=== PATIENT | male | born 1945 | race Caucasian/White ===

== ENCOUNTER 2021-04-17 13:55 | Inpatient (IN) ==
[2021-04-17] MEDS ORDERED: Isovue-370 500 ML BOTTLE IVP ONE (15:17)
[2021-04-17] MEDS ORDERED: 0.9 % Sodium Chloride 1,000 ML IVC ONE (15:17)
[2021-04-17 16:08] LABS: Basophils % 0.5 %; Eosinophils % 0.5 %; Hematocrit 33.7 % (37.5-50.1); Hemoglobin 11.1 g/dL (12.9-16.9); Immature Granulocytes % 0.8 % (0-4); Lymphocytes # 0.8 K/mcL (0.6-4.6); Lymphocytes % 10.6 %; Mean Corpuscular HGB Conc 32.9 g/dL (31.6-35.5); Mean Corpuscular Hemoglobin 32.1 pg (28.0-33.3); Mean Corpuscular Volume 97.4 fL (83.0-100.0); Mean Platelet Volume 10.3 fL (9.4-12.4); Monocytes # 0.7 K/mcL (0.0-1.3); Monocytes % 8.9 %; Neutrophils # 6.2 K/mcL (1.6-8.9); Platelet Count 271 K/mcL (140-400); Red Blood Count 3.46 M/mcL (4.19-5.50); Red Cell Distribution Width 16.2 % (11.5-14.5); Segmented Neutrophils % 78.7 %; White Blood Count 7.9 K/mcL (4.3-11.1)
[2021-04-17 16:28] LABS: Alanine Aminotransferase 92 Units/L (7-52); Albumin 2.9 g/dL (3.5-5.7); Albumin/Globulin Ratio 0.7 (1.1-2.2); Aspartate Amino Transferase 264 Units/L (13-39); BUN/Creatinine Ratio 24 (6-26); Bilirubin,Direct 3.8 mg/dL (0.0-0.2); Bilirubin,Indirect 2.1 mg/dL (0.0-1.0); Bilirubin,Total 5.9 mg/dL (0.3-1.0); Blood Urea Nitrogen 31 mg/dL (8-23); Calcium 9.2 mg/dL (8.6-10.3); Carbon Dioxide 20 mEq/L (23-29); Chloride 96 mEq/L (98-107); Glucose 83 mg/dL (70-105); Lipase 77 Units/L (11-82); Magnesium 1.5 mg/dL (1.6-2.6); Osmolality,Calculated 276 (280-300); Potassium 4.7 mEq/L (3.5-5.1); Sodium 130 mEq/L (136-145); Total Protein 6.9 g/dL (6.4-8.9); eGFR For African Americans > 60 (> 60); eGFR For Non-African Americans 56 (> 60)
[2021-04-17 17:13] LABS: Alkaline Phosphatase 1234 Units/L (34-104)
[2021-04-17 17:43] LABS: Bacteria,Urine Few per hpf (None-Few); Bilirubin,Urine Small (Negative); Blood,Urine Negative (Negative); Clarity,Urine Clear (Clear); Color,Urine Yellow (Yellow); Glucose,Urine (UA) Normal (Normal); Hyaline Casts,Urine Few per lpf (None Seen); Ketones,Urine Negative (Negative); Leukocyte Esterase,Urine Negative (Negative); Mucus,Urine Few per lpf (None-Few); Nitrite,Urine Negative (Negative); Protein,Urine 30 mg/dL (Neg-Trace); RBC,Urine 0-3 per hpf (0-3); Specific Gravity,Urine 1.018 (1.010-1.025); Urobilinogen,Urine Normal (Normal)
[2021-04-17] MEDS ORDERED: Naloxone 0.4 MG/ML INJ IVP PRN (20:55)
[2021-04-17] MEDS ORDERED: Gadolinium Contrast Agent (WT Based) IV PRN (21:31)
[2021-04-17] MEDS: 0.9 % Sodium Chloride 1,000 ML IVC SCH (23:17)
[2021-04-18] MEDS: Ondansetron ODT 4 MG TAB.RAPDIS SL PRN (06:35)
[2021-04-18] MEDS: *HR* Heparin 5,000 UNIT/ML VIAL SQ SCH ×2 (06:36→16:45)
[2021-04-18 07:23] LABS: Alanine Aminotransferase 91 Units/L (7-52); Albumin 3.1 g/dL (3.5-5.7); Albumin/Globulin Ratio 0.8 (1.1-2.2); Alkaline Phosphatase 1283 Units/L (34-104); Aspartate Amino Transferase 255 Units/L (13-39); BUN/Creatinine Ratio 27 (6-26); Bilirubin,Total 6.1 mg/dL (0.3-1.0); Blood Urea Nitrogen 30 mg/dL (8-23); Calcium 9.3 mg/dL (8.6-10.3); Carbon Dioxide 21 mEq/L (23-29); Chloride 98 mEq/L (98-107); Globulin 3.7 g/dL (2.4-3.5); Glucose 81 mg/dL (70-105); Osmolality,Calculated 277 (280-300); Potassium 4.5 mEq/L (3.5-5.1); Sodium 131 mEq/L (136-145); Total Protein 6.8 g/dL (6.4-8.9); eGFR For African Americans > 60 (> 60); eGFR For Non-African Americans > 60 (> 60)
[2021-04-18] MEDS: Finasteride 5 MG TABLET PO SCH (08:07)
[2021-04-18] MEDS: allopurinoL 300 MG TABLET PO SCH (08:07)
[2021-04-18] MEDS: Aspirin Enteric Coated 81 MG Tablet PO SCH (08:07)
[2021-04-18] MEDS: Fluticasone Propionate Nasal 50 MCG/SPRAY BOTTLE NS SCH (08:08)
[2021-04-18] MEDS ORDERED: Isovue-370 500 ML BOTTLE IVP ONE (09:57)
[2021-04-18 11:19] LABS: Bilirubin,Direct 3.7 mg/dL (0.0-0.2); Bilirubin,Indirect 2.4 mg/dL (0.0-1.0)
[2021-04-18] MEDS: 0.9 % Sodium Chloride 1,000 ML IVC SCH (12:12)
[2021-04-18 12:50] LABS: Hematocrit 32.8 % (37.5-50.1); Hemoglobin 10.5 g/dL (12.9-16.9); Mean Corpuscular Hemoglobin 31.7 pg (28.0-33.3); Mean Corpuscular Volume 99.1 fL (83.0-100.0); Platelet Count 310 K/mcL (140-400); Red Blood Count 3.31 M/mcL (4.19-5.50); Red Cell Distribution Width 15.8 % (11.5-14.5); White Blood Count 8.5 K/mcL (4.3-11.1)
[2021-04-18] MEDS: Temazepam 15 MG CAPSULE PO SCH (21:01)
[2021-04-19 03:07] LABS: Hematocrit 30.9 % (37.5-50.1); Hemoglobin 9.8 g/dL (12.9-16.9); Mean Corpuscular HGB Conc 31.7 g/dL (31.6-35.5); Mean Platelet Volume 9.9 fL (9.4-12.4); Platelet Count 237 K/mcL (140-400); Red Blood Count 3.06 M/mcL (4.19-5.50); Red Cell Distribution Width 15.2 % (11.5-14.5); White Blood Count 5.7 K/mcL (4.3-11.1)
[2021-04-19 03:15] LABS: INR 1.3; Prothrombin Time 15.4 Seconds (9.4-12.1)
[2021-04-19 03:18] LABS: Activated Partial Thrombo Time 31.4 Seconds (26.0-36.0)
[2021-04-19 03:29] LABS: Alanine Aminotransferase 80 Units/L (7-52); Albumin 2.6 g/dL (3.5-5.7); Albumin/Globulin Ratio 0.7 (1.1-2.2); Alkaline Phosphatase 1192 Units/L (34-104); Aspartate Amino Transferase 214 Units/L (13-39); BUN/Creatinine Ratio 25 (6-26); Bilirubin,Direct 2.9 mg/dL (0.0-0.2); Bilirubin,Indirect 1.8 mg/dL (0.0-1.0); Bilirubin,Total 4.7 mg/dL (0.3-1.0); Blood Urea Nitrogen 27 mg/dL (8-23); Calcium 8.6 mg/dL (8.6-10.3); Carbon Dioxide 22 mEq/L (23-29); Chloride 101 mEq/L (98-107); Globulin 3.6 g/dL (2.4-3.5); Glucose 88 mg/dL (70-105); Osmolality,Calculated 281 (280-300); Potassium 4.3 mEq/L (3.5-5.1); Sodium 133 mEq/L (136-145); Total Protein 6.2 g/dL (6.4-8.9); eGFR For African Americans > 60 (> 60); eGFR For Non-African Americans > 60 (> 60)
[2021-04-19 03:49] LABS: Hepatitis B Surface Antigen Nonreactive (Nonreactive)
[2021-04-19 04:17] LABS: Hepatitis C Virus Antibody Nonreactive (Nonreactive)
[2021-04-19 04:18] LABS: Hepatitis A Antibody IgM Nonreactive (Nonreactive); Hepatitis B Core IgM Nonreactive (Nonreactive)
[2021-04-19] MEDS: *HR* Heparin 5,000 UNIT/ML VIAL SQ SCH ×2 (06:26→21:35)
[2021-04-19] MEDS: Cholestyramine 4 GM POWD.PACK PO SCH (06:26)
[2021-04-19] MEDS: Fluticasone Propionate Nasal 50 MCG/SPRAY BOTTLE NS SCH (10:35)
[2021-04-19] MEDS: Finasteride 5 MG TABLET PO SCH (10:40)
[2021-04-19] MEDS: Aspirin Enteric Coated 81 MG Tablet PO SCH (10:40)
[2021-04-19] MEDS: allopurinoL 300 MG TABLET PO SCH (10:40)
[2021-04-19] MEDS: cefTRIAXone 1,000 MG in Water for inj. (sterile) 10 ML IVP SCH (10:48)
[2021-04-19] MEDS: Ondansetron ODT 4 MG TAB.RAPDIS SL PRN (21:35)
[2021-04-19] MEDS: Temazepam 15 MG CAPSULE PO SCH (21:36)
[2021-04-20 01:18] LABS: Basophils # 0.1 K/mcL (0.0-0.2); Basophils % 0.8 %; Eosinophils # 0.1 K/mcL (0.0-0.6); Eosinophils % 0.9 %; Hematocrit 32.8 % (37.5-50.1); Hemoglobin 10.4 g/dL (12.9-16.9); Immature Granulocytes % 0.8 % (0-4); Lymphocytes # 1.1 K/mcL (0.6-4.6); Lymphocytes % 14.8 %; Mean Corpuscular HGB Conc 31.7 g/dL (31.6-35.5); Mean Corpuscular Hemoglobin 32.4 pg (28.0-33.3); Mean Corpuscular Volume 102.2 fL (83.0-100.0); Mean Platelet Volume 10.1 fL (9.4-12.4); Monocytes # 0.6 K/mcL (0.0-1.3); Neutrophils # 5.7 K/mcL (1.6-8.9); Platelet Count 246 K/mcL (140-400); Red Blood Count 3.21 M/mcL (4.19-5.50); Red Cell Distribution Width 14.6 % (11.5-14.5); Segmented Neutrophils % 74.7 %; White Blood Count 7.6 K/mcL (4.3-11.1)
[2021-04-20 01:30] LABS: INR 1.4; Prothrombin Time 15.5 Seconds (9.4-12.1)
[2021-04-20 01:40] LABS: Alanine Aminotransferase 86 Units/L (7-52); Albumin 2.9 g/dL (3.5-5.7); Albumin/Globulin Ratio 0.7 (1.1-2.2); Alkaline Phosphatase 1271 Units/L (34-104); Aspartate Amino Transferase 228 Units/L (13-39); BUN/Creatinine Ratio 22 (6-26); Bilirubin,Total 4.8 mg/dL (0.3-1.0); Blood Urea Nitrogen 22 mg/dL (8-23); Carbon Dioxide 19 mEq/L (23-29); Chloride 97 mEq/L (98-107); Globulin 3.9 g/dL (2.4-3.5); Glucose 88 mg/dL (70-105); Magnesium 1.3 mg/dL (1.6-2.6); Osmolality,Calculated 271 (280-300); Phosphorous 2.4 mg/dL (2.7-4.5); Potassium 4.1 mEq/L (3.5-5.1); Sodium 129 mEq/L (136-145); Total Protein 6.8 g/dL (6.4-8.9); eGFR For African Americans > 60 (> 60); eGFR For Non-African Americans > 60 (> 60)
[2021-04-20] MEDS: *HR* Heparin 5,000 UNIT/ML VIAL SQ SCH ×2 (05:54→17:20)
[2021-04-20] MEDS: Cholestyramine 4 GM POWD.PACK PO SCH (05:54)
[2021-04-20] MEDS: Fluticasone Propionate Nasal 50 MCG/SPRAY BOTTLE NS SCH (08:28)
[2021-04-20] MEDS: Aspirin Enteric Coated 81 MG Tablet PO SCH (08:39)
[2021-04-20] MEDS: allopurinoL 300 MG TABLET PO SCH (08:40)
[2021-04-20] MEDS: Finasteride 5 MG TABLET PO SCH (08:40)
[2021-04-20] MEDS: cefTRIAXone 1,000 MG in Water for inj. (sterile) 10 ML IVP SCH (08:42)
[2021-04-20] MEDS ORDERED: Lidocaine -MPF 2% 5 ML VIAL ONE (11:31)
[2021-04-20] MEDS: Sodium Bicarbonate 75 MEQ in 0.45 % Sodium Chloride 1,000 ML IVC SCH (12:43)
[2021-04-20] MEDS: Temazepam 15 MG CAPSULE PO SCH (21:20)
[2021-04-21 01:53] LABS: BUN/Creatinine Ratio 21 (6-26); Blood Urea Nitrogen 21 mg/dL (8-23); Calcium 8.4 mg/dL (8.6-10.3); Carbon Dioxide 20 mEq/L (23-29); Chloride 97 mEq/L (98-107); Glucose 111 mg/dL (70-105); Magnesium 1.9 mg/dL (1.6-2.6); Osmolality,Calculated 274 (280-300); Phosphorous 2.8 mg/dL (2.7-4.5); Potassium 3.8 mEq/L (3.5-5.1); Sodium 130 mEq/L (136-145); eGFR For African Americans > 60 (> 60); eGFR For Non-African Americans > 60 (> 60)
[2021-04-21] MEDS: Sodium Bicarbonate 75 MEQ in 0.45 % Sodium Chloride 1,000 ML IVC SCH (04:17)
[2021-04-21] MEDS: *HR* Heparin 5,000 UNIT/ML VIAL SQ SCH (06:35)
[2021-04-21] MEDS: Cholestyramine 4 GM POWD.PACK PO SCH (06:35)
[2021-04-21 07:01] LABS: Pancreatic Elastase, Fecal >800 ug/g (>=100)
[2021-04-21] MEDS: Aspirin Enteric Coated 81 MG Tablet PO SCH (07:34)
[2021-04-21] MEDS: allopurinoL 300 MG TABLET PO SCH (07:36)
[2021-04-21] MEDS: Finasteride 5 MG TABLET PO SCH ×2 (07:38→07:48)
[2021-04-21] MEDS: cefTRIAXone 1,000 MG in Water for inj. (sterile) 10 ML IVP SCH (07:39)
[2021-04-21] MEDS: Fluticasone Propionate Nasal 50 MCG/SPRAY BOTTLE NS SCH (08:53)
[2021-04-21 10:22] VITALS: BP 112/72; PULSE 79; TEMP 98.2; O2SAT 91
[2021-04-22 10:48] LABS: ANA IgG by ELISA NONE DETECTED (None Detected)
[2021-04-22 11:20] LABS: ANA HEp-2 IgG IFA DETECTED (<1:80); Anti Nuclear Ab Pattern SPECKLED
== END 2021-04-21 12:30 | disposition home or self-care (01) | DRG 436 ==
LOC: 3ANU 13:55 → EMEROOARM 13:55 → 3ANU 19:30 → SUATTDRO 04-18 12:46
PROVIDERS: ADMIT Internal Medicine; ATTEND Internal Medicine
PROC: ENDOCBX (2021-04-20 12:00)
PROC: ENDOEBX (2021-04-20 12:00)

== ENCOUNTER 2021-05-31 16:49 | Observation (INO) ==
[2021-05-31] MEDS ORDERED: 0.9 % Sodium Chloride 1,000 ML ONE (16:56)
[2021-05-31] MEDS ORDERED: 0.9 % Sodium Chloride 1,000 ML IV ONE (17:02)
[2021-05-31 17:05] VITALS: TEMP 94
[2021-05-31 17:17] LABS: Basophils % 0.1 %; Eosinophils % 0.1 %; Hematocrit 28.8 % (37.5-50.1); Hemoglobin 9.9 g/dL (12.9-16.9); Immature Granulocytes % 1.5 % (0-4); Lymphocytes # 0.6 K/mcL (0.6-4.6); Lymphocytes % 4.4 %; Mean Corpuscular HGB Conc 34.4 g/dL (31.6-35.5); Mean Corpuscular Hemoglobin 34.6 pg (28.0-33.3); Mean Corpuscular Volume 100.7 fL (83.0-100.0); Mean Platelet Volume 10.5 fL (9.4-12.4); Monocytes # 0.5 K/mcL (0.0-1.3); Monocytes % 3.5 %; Neutrophils # 11.8 K/mcL (1.6-8.9); Nucleated Red Blood Cells 0.6 /100 WBC (0); Platelet Count 229 K/mcL (140-400); Red Blood Count 2.86 M/mcL (4.19-5.50); Red Cell Distribution Width 16.4 % (11.5-14.5); Segmented Neutrophils % 90.4 %
[2021-05-31 17:23] LABS: Prothrombin Time 22.4 Seconds (9.4-12.1)
[2021-05-31] MEDS: 0.9 % Sodium Chloride 1,000 ML IVC ONE ×2 (17:25→17:39)
[2021-05-31 17:26] LABS: Activated Partial Thrombo Time 39.8 Seconds (26.0-36.0)
[2021-05-31] MEDS ORDERED: Isovue-370 500 ML BOTTLE IVP ONE ×2 (17:43→17:44)
[2021-05-31 18:05] LABS: Alanine Aminotransferase 301 Units/L (7-52); Albumin 2.5 g/dL (3.5-5.7); Albumin/Globulin Ratio 0.8 (1.1-2.2); Alkaline Phosphatase 1475 Units/L (34-104); Aspartate Amino Transferase 854 Units/L (13-39); Bilirubin,Direct 11.6 mg/dL (0.0-0.2); Bilirubin,Indirect 10.9 mg/dL (0.0-1.0); Bilirubin,Total 22.5 mg/dL (0.3-1.0); Blood Urea Nitrogen > 130 mg/dL (8-23); Calcium 7.9 mg/dL (8.6-10.3); Carbon Dioxide 12 mEq/L (23-29); Chloride 78 mEq/L (98-107); Glucose 77 mg/dL (70-105); Lipase 750 Units/L (11-82); Magnesium 3.2 mg/dL (1.6-2.6); Phosphorous 9.8 mg/dL (2.7-4.5); Sodium 116 mEq/L (136-145); Total Protein 5.5 g/dL (6.4-8.9); Troponin I 0.07 ng/mL (< 0.04); eGFR For African Americans 8 (> 60); eGFR For Non-African Americans 7 (> 60)
[2021-05-31] MEDS ORDERED: *HR* FentaNYL (PF) 100 MCG/2 ML VIAL IVP ONE (18:21)
[2021-05-31] MEDS ORDERED: Insulin Human Regular 5 UNIT in 0.9 % Sodium Chloride 10 ML IV ONE (18:22)
[2021-05-31] MEDS ORDERED: *HR* Dextrose 50 % in Water (Syg) 50 ML SYRINGE IVP ONE (18:22)
[2021-05-31] MEDS ORDERED: Calcium Gluconate 1,000 MG/10 ML VIAL IVP ONE (18:22)
[2021-05-31] MEDS: Morphine Sulfate 2 MG/ML SYRINGE IVP PRN ×2 (19:38→21:13)
[2021-05-31] MEDS ORDERED: Morphine Sulfate 2 MG/ML SYRINGE IVP PRN (20:10)
[2021-05-31] MEDS ORDERED: Morphine Sulfate 2 MG/ML SYRINGE IVP ONE (20:12)
[2021-05-31] MEDS ORDERED: Atropine 1% Opth Drops 100 DROP/5 ML BOTTLE SL PRN (22:36)
[2021-05-31] MEDS ORDERED: Ondansetron 4 MG/2 ML VIAL IVP PRN (22:36)
[2021-05-31] MEDS ORDERED: Albuterol 2.5 MG/3 ML NEBULIZER IH PRN (22:36)
[2021-05-31 23:18] VITALS: BP 91/53; PULSE 61; O2SAT 95
[2021-06-01] MEDS: Morphine Sulfate 2 MG/ML SYRINGE IVP PRN ×2 (00:24→05:51)
[2021-06-01] MEDS: *HR* LORazepam 2 MG/ML VIAL IVP PRN ×2 (00:24→05:45)
== END 2021-06-01 06:12 | disposition expired ==
LOC: EMEROOARM 16:49 → 2ANU 16:49 → SUATTDRO 21:57 → 2ANU 22:09
PROVIDERS: ADMIT Student in an Organized Health Care Education/Training Program; ATTEND Internal Medicine